=== PATIENT | male | born 1960 | race Caucasian/White ===

== ENCOUNTER 2020-03-03 14:33 | Emergency (ER) | payer OTHER ==
[~2020-03-03] VITALS: Ht 177.8 cm; Wt 59.1 kg
[2020-03-03] MEDS ORDERED: ONDA-104 PO (14:52)
[2020-03-03] MEDS ORDERED: MORP15TA43 PO (14:52)
[2020-03-03] MEDS ORDERED: CLOP-31 PO (14:52)
[2020-03-03] MEDS ORDERED: GABA-1216 PO (14:52)
[2020-03-03] MEDS ORDERED: MORPHINE SULFATE 4 MG/ML SYRINGE IVP ONE (15:15)
[2020-03-03 15:23] VITALS: BP 151/92
[2020-03-03] MEDS: OxyCODONE HCL/ACETAMINOPHEN 10-325 MG TABLET PO ONE ×2 (15:26→15:40)
[2020-03-03] MEDS ORDERED: ACETAMINOPHEN 500 MG TABLET PO ONE (15:45)
== END 2020-03-03 16:15 | disposition home or self-care (01) ==
LOC: EMS 14:37
DX: S80.812A Abrasion, left lower leg, initial encounter (principal); R10.9 Unspecified abdominal pain; I10 Essential (primary) hypertension; I25.10 Atherosclerotic heart disease of native coronary artery without angina pectoris; Z85.118 Personal history of other malignant neoplasm of bronchus and lung; W19.XXXA Unspecified fall, initial encounter; Y93.89 Activity, other specified; Y92.89 Other specified places as the place of occurrence of the external cause; Y99.8 Other external cause status
CPT/HCPCS: 94799